=== PATIENT | male | born 1950 | race Caucasian/White ===

== ENCOUNTER → 2019-12-03 | Outpatient (CLI) | payer MEDICARE, OTHER ==
--- NOTE | 2019-12-03 17:52 | KCIC ---
PROCEDURE: RENAL COMPLETE BILATERAL CLINICAL INDICATION / HISTORY: Reason: RENAL CYST / Spl. Instructions: / History: . TECHNIQUE: Real time ultrasound of the retroperitoneal structures focused on the kidneys was performed with freeze-frame imaging documentation. Technologist reports examination was limited due to bowel gas and patient large body habitus. COMPARISON: No relevant comparisons currently available. FINDINGS: Right kidney measures 10.3 x 6.6 x 7.1 cm and shows mild lobular contour to the midpole. No definite cyst or obvious solid masses identified. This could represent a persistent lobulation. There is an echogenic focus in the midpole right kidney that could represent a kidney stone. No hydronephrosis is apparent. Left kidney measures 13.5 x 4.9 x 5.9 cm and shows no hydronephrosis, echogenic foci or masses. The urinary bladder is not well seen and likely empty. There is bowel gas artifact present as well.. IMPRESSION: Lobulated contour to the midpole right kidney is indeterminate. This could represent a persistent lobulation versus a right renal cyst that is limited in assessment due to patient body habitus. Correlation with previous examinations would be helpful. No evidence for solid renal masses identified by ultrasound. If indicated, contrast enhanced renal mass protocol CT or MRI could be considered in further evaluation Electronically signed by: Miguel Carmona MD (12/03/2019 5:49 PM) [id number]
== END | disposition home or self-care (01) ==
LOC: KCIC US 15:15
PROVIDERS: ATTEND Family Medicine
DX: Q61.00 Congenital renal cyst, unspecified (principal)
CPT/HCPCS: 76770